=== PATIENT | female | born 1975 | race Caucasian/White ===

== ENCOUNTER 2016-06-03 13:57 | Emergency (ER) | payer OTHER ==
[~2016-06-03] VITALS: Ht 167.6 cm; Wt 91.7 kg
[~2016-06-03 13:57] MED LIST: CARAFATE100 MG/ML PO; FLEXERIL10 MG PO; HYDROCODON-ACE1 EAC7 PO; IMODIUM A-D2 MG PO; KEFLEX500 MG PO; LORTAB 5-325 M1 EACH PO; MEDROL DOSEPAK4 MG PO; MELOXICAM15 MG PO; MOTRIN800 MG PO; NAPROSYN500 MG PO; NAPROXEN250 MG PO; NOHOMEMEDS; PROTONIX40 MG PO; ULTRAM50 MG PO; VALIUM5 MG PO; VENTOLIN HFA18 GM IH; ZITHROMAX500 MG PO
[2016-06-03] MEDS ORDERED: NAPROSYN500 MG PO (18:01)
[2016-06-03 18:58] VITALS: BP 111/68
== END 2016-06-03 18:59 | disposition home or self-care (01) ==
LOC: EME 13:57
DX: S80.01XA Contusion of right knee, initial encounter (principal); W10.9XXA Fall (on) (from) unspecified stairs and steps, initial encounter
CPT/HCPCS: 73564; 99281; 99284

== ENCOUNTER 2016-07-18 19:47 | Emergency (ER) | payer OTHER ==
[~2016-07-18] VITALS: Ht 167.6 cm; Wt 91.6 kg
[2016-07-18 20:10] LABS: HEMATOCRIT 37.7 % (36.0-46.0); MCH 29.1 PG (29.0-34.0); MCHC 33.7 G/DL (30.0-36.0); MCV 86.5 FL (83-99); MEAN PLAT.VOLUME 10.2 uM^3 (9.5-12.4); PLATELET COUNT 169 K/uL (156-360); RBC DIS.WIDTH-SD 40.5 % (39-53); RED BLOOD COUNT 4.36 M/uL (3.80-5.20); WHITE BLOOD COUNT 4.6 K/uL (4.1-10.2)
[2016-07-18 20:19] LABS: CHLORIDE 107 mEq/L (99-109); POTASSIUM 4.2 mEq/L (3.7-5.4); SODIUM 139 mEq/L (136-147)
[2016-07-18 20:21] LABS: GLUCOSE 86 mg/dL (70-99)
[2016-07-18 20:23] LABS: ANION GAP 7 MEQ/L (2-14); TOTAL BILIRUBIN 0.6 mg/dL (0.0-1.0)
[2016-07-18 20:25] LABS: ALKALINE PHOSPHATASE 82 IU/L (3-129); GFR ESTIMATE (CALCULATED) > 59 mL/min/
[2016-07-18 20:26] LABS: UREA NITROGEN (BUN) 16 mg/dL (9-23)
[2016-07-18 20:34] LABS: QUANTITATIVE HCG < 4.0 MIU/ML
[2016-07-18 20:48] LABS: ADD MIUA? NO; BILIRUBIN NEGATIVE; BLOOD NEGATIVE; COLOR YELLOW ((YELLOW)); GLUCOSE (STRIP) NEGATIVE; KETONES NEGATIVE; LEUKOCYTES NEGATIVE; NITRITE NEGATIVE; PROTEIN (STRIP) NEGATIVE; SPECIFIC GRAVITY 1.025 (1.000-1.030); UCUL ADDED? NO; UROBILINOGEN 0.2 MG/DL (0.2-1.0)
[2016-07-18 20:51] LABS: LIPASE 23 U/L (1.0-51.0)
[2016-07-18 21:02] LABS: AMYLASE 35 IU/L (1-118)
[2016-07-18] MEDS ORDERED: TRAMADOL HCL50 MG PO (21:51)
[2016-07-18] MEDS ORDERED: CARAFATE1 GM PO (21:51)
[2016-07-18 22:11] VITALS: BP 103/68
== END 2016-07-18 22:11 | disposition home or self-care (01) ==
LOC: EME 19:47
DX: K21.9 Gastro-esophageal reflux disease without esophagitis (principal)
CPT/HCPCS: 80053; 81003; 82150; 83690; 84702; 85027; 93005; 99281; 99284

== ENCOUNTER 2016-07-23 09:55 | Emergency (ER) | payer OTHER ==
[~2016-07-23] VITALS: Ht 167.6 cm; Wt 89.4 kg
[~2016-07-23 09:55] MED LIST changes: +CARAFATE1 GM PO; +TRAMADOL HCL50 MG PO
[2016-07-23 11:32] LABS: HEMATOCRIT 41.3 % (36.0-46.0); MCH 29.4 PG (29.0-34.0); MCHC 33.9 G/DL (30.0-36.0); MCV 86.8 FL (83-99); MEAN PLAT.VOLUME 10.2 uM^3 (9.5-12.4); PLATELET COUNT 187 K/uL (156-360); RBC DIS.WIDTH-SD 40.4 % (39-53); RED BLOOD COUNT 4.76 M/uL (3.80-5.20); WHITE BLOOD COUNT 4.9 K/uL (4.1-10.2)
[2016-07-23 11:41] LABS: CHLORIDE 105 mEq/L (99-109); POTASSIUM 3.7 mEq/L (3.7-5.4); SODIUM 140 mEq/L (136-147)
[2016-07-23 11:43] LABS: GLUCOSE 86 mg/dL (70-99)
[2016-07-23 11:44] LABS: ANION GAP 8 MEQ/L (2-14)
[2016-07-23 11:45] LABS: TOTAL BILIRUBIN 0.7 mg/dL (0.0-1.0)
[2016-07-23 11:46] LABS: ALKALINE PHOSPHATASE 71 IU/L (3-129)
[2016-07-23 11:47] LABS: GFR ESTIMATE (CALCULATED) > 59 mL/min/
[2016-07-23 11:48] LABS: UREA NITROGEN (BUN) 17 mg/dL (9-23)
[2016-07-23 11:49] LABS: ADD MIUA? YES; BILIRUBIN NEGATIVE; BLOOD NEGATIVE; COLOR YELLOW ((YELLOW)); GLUCOSE (STRIP) NEGATIVE; KETONES NEGATIVE; LEUKOCYTES NEGATIVE; NITRITE NEGATIVE; PROTEIN (STRIP) 30; SPECIFIC GRAVITY 1.031 (1.000-1.030); UROBILINOGEN 0.2 MG/DL (0.2-1.0)
[2016-07-23 11:50] LABS: LIPASE 17 U/L (1.0-51.0)
[2016-07-23 12:01] LABS: BACTERIA 1+ /HPF; EPITHELIAL CELLS 2+ /HPF; MUCUS 2+ /LPF; RED BLOOD CELLS 0-5 /HPF (0-5); UCUL ADDED? NO; WHITE BLOOD CELLS 0-5 /HPF (0-5)
[2016-07-23] MEDS ORDERED: OMEPRAZOLE40 M1 PO (13:42)
[2016-07-23 15:30] VITALS: BP 140/80
== END 2016-07-23 15:34 | disposition home or self-care (01) ==
LOC: EME 09:55
PROVIDERS: Physician Assistant
DX: K59.00 Constipation, unspecified (principal); K21.9 Gastro-esophageal reflux disease without esophagitis; J45.909 Unspecified asthma, uncomplicated; Z88.0 Allergy status to penicillin
CPT/HCPCS: 74022; 76705; 80053; 81003; 83690; 85027; 99281; 99284

== ENCOUNTER 2016-11-09 15:02 | Emergency (ER) | payer BC ==
[~2016-11-09] VITALS: Ht 170.2 cm; Wt 93.4 kg
[~2016-11-09 15:02] MED LIST changes: +OMEPRAZOLE40 M1 PO
[2016-11-09 15:33] VITALS: BP 108/70
[2016-11-09] MEDS ORDERED: KEFLEX500 MG PO (19:41)
[2016-11-09] MEDS ORDERED: PERCOCET 5/31 TABLET PO (20:08)
== END 2016-11-09 20:12 | disposition home or self-care (01) ==
LOC: EME 15:02
DX: S93.401A Sprain of unspecified ligament of right ankle, initial encounter (principal); X50.1XXA Overexertion from prolonged static or awkward postures, initial encounter; L03.115 Cellulitis of right lower limb; Z88.0 Allergy status to penicillin
CPT/HCPCS: 73610; 93971; 99281; 99283

== ENCOUNTER 2017-06-24 18:25 | Emergency (ER) | payer BC ==
[~2017-06-24] VITALS: Ht 167.6 cm; Wt 84.1 kg
[~2017-06-24 18:25] MED LIST changes: +PERCOCET 5/31 TABLET PO
[2017-06-24] MEDS ORDERED: MOTRIN800 MG PO (20:11)
[2017-06-24 21:09] VITALS: BP 130/95
== END 2017-06-24 21:10 | disposition home or self-care (01) ==
LOC: EME 18:25
DX: S60.221A Contusion of right hand, initial encounter (principal); W23.1XXA Caught, crushed, jammed, or pinched between stationary objects, initial encounter; Z88.0 Allergy status to penicillin
CPT/HCPCS: 73130; 99281; 99284

== ENCOUNTER 2017-09-21 15:32 | Emergency (ER) | payer OTHER ==
[~2017-09-21] VITALS: Ht 167.6 cm; Wt 97.4 kg
[2017-09-21 18:01] VITALS: BP 122/88
[2017-09-21] MEDS ORDERED: FLEXERIL10 MG PO (18:15)
[2017-09-21] MEDS ORDERED: NORCO 5/3251 TABLET PO (18:15)
== END 2017-09-21 18:36 | disposition home or self-care (01) ==
LOC: EME 15:32
DX: R07.89 Other chest pain (principal); Z88.0 Allergy status to penicillin
CPT/HCPCS: 71046; 99281; 99284; J1885

== ENCOUNTER 2017-09-26 07:15 | Inpatient (IN) | payer BC ==
[~2017-09-26] VITALS: Ht 167.6 cm; Wt 85.5 kg
[~2017-09-26 07:15] MED LIST changes: +NORCO 5/3251 TABLET PO
[2017-09-26 07:41] LABS: APPEARANCE TURBID ((CLEAR)); BILIRUBIN MODERATE; BLOOD MODERATE; COLOR AMBER ((YELLOW)); GLUCOSE (STRIP) NEGATIVE; KETONES NEGATIVE; LEUKOCYTES NEGATIVE; NITRITE NEGATIVE; PROTEIN (STRIP) 100; SPECIFIC GRAVITY 1.031 (1.000-1.030)
[2017-09-26 07:53] LABS: ICTOTEST ND
[2017-09-26 08:34] LABS: BACTERIA 2+ /HPF; EPITHELIAL CELLS 3+ /HPF; MUCUS NONE SEEN /LPF; RED BLOOD CELLS RARE /HPF (0-5)
[2017-09-26 08:54] LABS: BASOPHIL (%) 0.3 % (0-1); EOSINOPHIL (%) 0.2 % (0-5); HEMATOCRIT 33.1 % (36.0-46.0); HEMOGLOBIN 11.4 G/DL (11.9-15.5); IMMATURE GRANULOCYTE (%) 0.5 % (0.0-0.7); LYMPHOCYTE (%) 5.1 % (15-42); LYMPHOCYTE COUNT 0.6 K/uL (1.0-2.8); MCH 29.8 PG (29.0-34.0); MCHC 34.4 G/DL (30.0-36.0); MCV 86.6 FL (83-99); MONOCYTE (%) 7.7 % (3-12); MONOCYTE COUNT 0.9 K/uL (0-0.8); NEUTROPHIL (%) 86.2 % (45-76); NEUTROPHIL COUNT 10.1 K/uL (1.8-6.4); PLATELET COUNT 335 K/uL (156-360); RBC DIS.WIDTH-CV 12.3 % (11.8-14.6); RBC DIS.WIDTH-SD 39.2 % (39-53); RED BLOOD COUNT 3.82 M/uL (3.80-5.20); WHITE BLOOD COUNT 11.7 K/uL (4.1-10.2)
[2017-09-26 08:59] LABS: INTER. NORMALIZED RATIO 1.3
[2017-09-26 09:02] LABS: PTT 29.9 SEC (25-37)
[2017-09-26 09:23] LABS: QUANTITATIVE HCG < 4.0 MIU/ML
[2017-09-26 09:32] LABS: ALBUMIN 3.6 G/DL (3.2-4.8); CHLORIDE 100 MEQ/L (99-109); POTASSIUM 3.3 MEQ/L (3.7-5.4); SODIUM 136 MEQ/L (136-147); TOTAL BILIRUBIN 0.9 MG/DL (0.0-1.0)
[2017-09-26 09:38] LABS: ALKALINE PHOSPHATASE 91 IU/L (3-129); ALT (GPT) 20 IU/L (3-49); AST (GOT) 26 IU/L (2-34); CREATININE 0.7 MG/DL (0.6-1.3); GFR ESTIMATE (CALCULATED) > 59 mL/min/; GLUCOSE 148 mg/dL (70-99); LIPASE 6 U/L (1.0-51.0); TOTAL PROTEIN 7.3 G/DL (6.4-8.3); UREA NITROGEN (BUN) 11 mg/dL (9-23)
[2017-09-26] MEDS ORDERED: TRI-ESTARYLLA1 EACH PO (11:11)
[2017-09-26] MEDS ORDERED: NORCO 5/3251 TABLET PO (11:11)
[2017-09-26] MEDS ORDERED: FLEXERIL10 MG PO (11:11)
[2017-09-26 11:43] LABS: TROP-I INTERPRETATION NEGATIVE; TROPONIN-I 0.02 ng/mL (0.0-0.30)
[2017-09-26 13:31] VITALS: BP 119/74
[2017-09-26 19:59] VITALS: BP 130/75
[2017-09-27 00:40] VITALS: BP 109/67
[2017-09-27 04:17] VITALS: BP 104/61
[2017-09-27 06:57] LABS: HEMATOCRIT 32.7 % (36.0-46.0); HEMOGLOBIN 10.6 G/DL (11.9-15.5); MCH 28.9 PG (29.0-34.0); MCHC 32.4 G/DL (30.0-36.0); MCV 89.1 FL (83-99); PLATELET COUNT 371 K/uL (156-360); RBC DIS.WIDTH-CV 12.5 % (11.8-14.6); RBC DIS.WIDTH-SD 40.9 % (39-53); RED BLOOD COUNT 3.67 M/uL (3.80-5.20); WHITE BLOOD COUNT 8.1 K/uL (4.1-10.2)
[2017-09-27 07:23] LABS: ALBUMIN 3.1 G/DL (3.2-4.8); ALKALINE PHOSPHATASE 80 IU/L (3-129); ALT (GPT) 20 IU/L (3-49); AST (GOT) 18 IU/L (2-34); CHLORIDE 105 MEQ/L (99-109); CREATININE 0.8 MG/DL (0.6-1.3); GFR ESTIMATE (CALCULATED) > 59 mL/min/; POTASSIUM 3.9 MEQ/L (3.7-5.4); SODIUM 141 MEQ/L (136-147); TOTAL PROTEIN 6.5 G/DL (6.4-8.3); UREA NITROGEN (BUN) 9 mg/dL (9-23)
[2017-09-27 07:24] LABS: GLUCOSE 88 mg/dL (70-99); TOTAL BILIRUBIN 0.5 MG/DL (0.0-1.0)
[2017-09-27 07:38] VITALS: BP 115/76
[2017-09-27 11:25] VITALS: BP 119/56
[2017-09-27 17:08] VITALS: BP 109/62
[2017-09-27 23:17] VITALS: BP 137/71
[2017-09-28 06:22] LABS: BASOPHIL (%) 0.4 % (0-1); EOSINOPHIL (%) 1.3 % (0-5); EOSINOPHIL COUNT 0.1 K/uL (0-0.3); HEMATOCRIT 33.3 % (36.0-46.0); HEMOGLOBIN 10.8 G/DL (11.9-15.5); IMMATURE GRANULOCYTE (%) 0.7 % (0.0-0.7); LYMPHOCYTE (%) 20.4 % (15-42); LYMPHOCYTE COUNT 1.5 K/uL (1.0-2.8); MCH 29.3 PG (29.0-34.0); MCHC 32.4 G/DL (30.0-36.0); MCV 90.2 FL (83-99); MONOCYTE COUNT 1.1 K/uL (0-0.8); NEUTROPHIL (%) 63.2 % (45-76); NEUTROPHIL COUNT 4.8 K/uL (1.8-6.4); PLATELET COUNT 372 K/uL (156-360); RBC DIS.WIDTH-CV 12.7 % (11.8-14.6); RED BLOOD COUNT 3.69 M/uL (3.80-5.20); WHITE BLOOD COUNT 7.6 K/uL (4.1-10.2)
[2017-09-28 06:41] LABS: CHLORIDE 102 MEQ/L (99-109); CREATININE 0.8 MG/DL (0.6-1.3); GFR ESTIMATE (CALCULATED) > 59 mL/min/; GLUCOSE 93 mg/dL (70-99); POTASSIUM 4.4 MEQ/L (3.7-5.4); SODIUM 140 MEQ/L (136-147); UREA NITROGEN (BUN) 10 mg/dL (9-23)
[2017-09-28 08:11] VITALS: BP 104/67
[2017-09-28 16:25] VITALS: BP 107/55
[2017-09-28 23:30] VITALS: BP 143/85
[2017-09-29 05:51] LABS: HEMATOCRIT 35.6 % (36.0-46.0); HEMOGLOBIN 11.5 G/DL (11.9-15.5); MCH 28.7 PG (29.0-34.0); MCHC 32.3 G/DL (30.0-36.0); MCV 88.8 FL (83-99); PLATELET COUNT 451 K/uL (156-360); RBC DIS.WIDTH-CV 12.4 % (11.8-14.6); RBC DIS.WIDTH-SD 40.7 % (39-53); RED BLOOD COUNT 4.01 M/uL (3.80-5.20); WHITE BLOOD COUNT 7.6 K/uL (4.1-10.2)
[2017-09-29 07:19] VITALS: BP 118/69
[2017-09-29] MEDS ORDERED: BENZONATATE100 MG PO (12:59)
[2017-09-29] MEDS ORDERED: DULERA 100 MCG/13 GM IH (13:00)
[2017-09-29] MEDS ORDERED: SENNA PLUS TAB1 EACH PO (13:00)
[2017-09-29] MEDS ORDERED: ELIQUIS5 MG PO ×2 (13:00→13:01)
== END 2017-09-29 15:53 | disposition home or self-care (01) | DRG 175 ==
LOC: EME 07:15 → EDOF 11:14 → 5EAST 11:14 → ENRESERV 11:16 → EDOF 11:16 → ENRESERV 12:16 → 5EAST 12:49
PROVIDERS: Emergency Medicine; Internal Medicine; Physician Assistant
DX: I26.99 Other pulmonary embolism without acute cor pulmonale (principal); J18.9 Pneumonia, unspecified organism; J20.9 Acute bronchitis, unspecified; J98.11 Atelectasis; J91.8 Pleural effusion in other conditions classified elsewhere; K92.0 Hematemesis; E87.6 Hypokalemia; J45.909 Unspecified asthma, uncomplicated; K21.9 Gastro-esophageal reflux disease without esophagitis; Z79.899 Other long term (current) drug therapy; Z83.3 Family history of diabetes mellitus; Z83.79 Family history of other diseases of the digestive system
CPT/HCPCS: 71046; 71260; 80048; 80053; 81003; 83690; 83735; 83880; 84484; 84702; 85025; 85027; 85610; 85730; 93005; 93306; 93970; 94640; 94640 76; 99281; 99285; J7120; S0028

== ENCOUNTER 2017-10-04 13:11 | Emergency (ER) | payer BC ==
[~2017-10-04] VITALS: Ht 167.6 cm; Wt 83.8 kg
[~2017-10-04 13:11] MED LIST changes: +BENZONATATE100 MG PO; +DULERA 100 MCG/13 GM IH; +ELIQUIS5 MG PO; +SENNA PLUS TAB1 EACH PO; +TRI-ESTARYLLA1 EACH PO
[2017-10-04 15:03] LABS: HEMATOCRIT 35.9 % (36.0-46.0); HEMOGLOBIN 11.9 G/DL (11.9-15.5); MCH 29.2 PG (29.0-34.0); MCHC 33.1 G/DL (30.0-36.0); PLATELET COUNT 512 K/uL (156-360); RBC DIS.WIDTH-CV 12.2 % (11.8-14.6); RBC DIS.WIDTH-SD 39.1 % (39-53); RED BLOOD COUNT 4.08 M/uL (3.80-5.20)
[2017-10-04 15:09] LABS: INTER. NORMALIZED RATIO 2.4
[2017-10-04 15:12] LABS: CHLORIDE 103 mEq/L (99-109); POTASSIUM 4.8 mEq/L (3.7-5.4); PTT 40.8 SEC (25-37); SODIUM 141 mEq/L (136-147)
[2017-10-04 15:13] LABS: GLUCOSE 87 mg/dL (70-99)
[2017-10-04 15:17] LABS: CREATININE 0.8 mg/dL (0.6-1.3); GFR ESTIMATE (CALCULATED) > 59 mL/min/
[2017-10-04 15:18] LABS: UREA NITROGEN (BUN) 10 mg/dL (9-23)
[2017-10-04 18:59] VITALS: BP 108/79
== END 2017-10-04 18:59 | disposition home or self-care (01) ==
LOC: EME 13:11
PROVIDERS: Emergency Medicine
DX: J90 Pleural effusion, not elsewhere classified (principal); R04.2 Hemoptysis; I26.99 Other pulmonary embolism without acute cor pulmonale; Z79.01 Long term (current) use of anticoagulants; J45.909 Unspecified asthma, uncomplicated; K21.9 Gastro-esophageal reflux disease without esophagitis; Z88.0 Allergy status to penicillin
CPT/HCPCS: 71275; 80048; 85027; 85610; 85730; 93005; 99281; 99284; J7030

== ENCOUNTER 2017-10-12 13:40 | Emergency (ER) | payer BC ==
[~2017-10-12] VITALS: Ht 167.6 cm; Wt 81.5 kg
[2017-10-12 15:00] LABS: HEMATOCRIT 35.4 % (36.0-46.0); HEMOGLOBIN 11.8 G/DL (11.9-15.5); MCH 28.6 PG (29.0-34.0); MCHC 33.3 G/DL (30.0-36.0); MCV 85.9 FL (83-99); PLATELET COUNT 524 K/uL (156-360); RBC DIS.WIDTH-CV 12.2 % (11.8-14.6); RBC DIS.WIDTH-SD 38.5 % (39-53); RED BLOOD COUNT 4.12 M/uL (3.80-5.20); WHITE BLOOD COUNT 8.4 K/uL (4.1-10.2)
[2017-10-12 15:10] LABS: CHLORIDE 104 mEq/L (99-109); POTASSIUM 3.7 mEq/L (3.7-5.4); SODIUM 141 mEq/L (136-147)
[2017-10-12 15:12] LABS: GLUCOSE 126 mg/dL (70-99)
[2017-10-12 15:16] LABS: CREATININE 0.8 mg/dL (0.6-1.3); GFR ESTIMATE (CALCULATED) > 59 mL/min/
[2017-10-12 15:17] LABS: UREA NITROGEN (BUN) 6 mg/dL (9-23)
[2017-10-12 15:20] LABS: TROP-I INTERPRETATION NEGATIVE; TROPONIN-I < 0.01 ng/mL (0.0-0.30)
[2017-10-12 18:08] LABS: TROP-I INTERPRETATION NEGATIVE; TROPONIN-I < 0.01 ng/mL (0.0-0.30)
[2017-10-12 19:10] VITALS: BP 114/94
== END 2017-10-12 19:11 | disposition home or self-care (01) ==
LOC: RME 13:40 → EME 13:40 → RME 19:11
PROVIDERS: Physician Assistant Medical
DX: R07.9 Chest pain, unspecified (principal); Z86.711 Personal history of pulmonary embolism; J45.909 Unspecified asthma, uncomplicated; K21.9 Gastro-esophageal reflux disease without esophagitis; E78.5 Hyperlipidemia, unspecified; Z79.01 Long term (current) use of anticoagulants; Z88.0 Allergy status to penicillin
CPT/HCPCS: 71046; 71275; 80048; 84484; 85027; 93005; 99281; 99284; J7030

== ENCOUNTER → 2017-11-05 | Outpatient (CLI) | payer BC ==
[~2017-11-05] MED LIST changes: +PROAIR HFA8.5 GM IH; +SYMBICORT60 INHALA1 IH
[2017-11-05 11:40] LABS: TYPE OF FLUID PLEURAL
[2017-11-05 12:00] LABS: APPEARANCE CLOUDY-BLOODY; BODY FLUID RBC'S 115000 /MM^3 (0-100); BODY FLUID WBC'S 3087 /MM^3 (0-500)
[2017-11-05 12:10] LABS: BODY FLUID GLUCOSE 65 MG/DL; BODY FLUID LDH 580 IU/L; BODY FLUID PROTEIN 4.4 G/DL
[2017-11-05 14:13] LABS: BODY FLUID EOSINOPHILS 0 % (0-25); MONONUCLEAR WBC'S 84 %; POLYNUCLEAR WBC'S 16 % (0-25)
== END | disposition home or self-care (01) ==
LOC: RAD 10:26 → EDSTATUS 11:00
PROVIDERS: Internal Medicine Pulmonary Disease
PROC: 0W9B3ZZ Drainage of Left Pleural Cavity, Percutaneous Approach (ICD-10-PCS; principal; 2017-11-05)
DX: J90 Pleural effusion, not elsewhere classified (principal); I26.99 Other pulmonary embolism without acute cor pulmonale
CPT/HCPCS: 76942; 82945; 83615 91; 84157; 87070; 87075; 87205; 88108; 88305; 89051